=== PATIENT | female | born 1995 | race Caucasian/White ===

== ENCOUNTER 2018-11-10 11:23 | Emergency (ER) | payer SELFPAY ==
[2018-11-10 11:57] VITALS: BP 130/78
--- NOTE | 2018-11-10 12:36 | UC ---
Throat Pain/Nasal Porfirio HPI - HPI Summary HPI Summary: 4 DAYS OF SORE THROAT AND PAIN WITH SWALLOWING. HAD A TONSILLECTOMY ABOUT 5 YEARS AGO. NO FEVER, NAUSEA, EAR PAIN, COUGH. [place] SO DOES NOT HAVE ACCESS TO ANY PRIMARY CARE CURRENTLY. - History of Current Complaint Chief Complaint: UCGeneralIllness Stated Complaint: SORE THROAT Time Seen by Provider: 11/10/18 12:25 Hx Obtained From: Patient Hx Last Menstrual Period: iud Onset/Duration: Gradual Onset, Lasting Days, Still Present Severity: Moderate Pain Intensity: 8 Pain Scale Used: 0-10 Numeric Cough: None Associated Signs & Symptoms: Negative: Hoarseness, Sinus Discomfort, Nasal Discharge, Fever - Allergies/Home Medications Allergies/Adverse Reactions: Allergies Allergy/AdvReac Type Severity Reaction Status Date / Time peanuts Allergy anaph Uncoded 11/10/18 11:58 Home Medications: Home Medications NK [No Home Medications Reported] 11/10/18 [History Confirmed 11/10/18] PMH/Surg Hx/FS Hx/Imm Hx - Additional Past Medical History Additional PMH: SEASONAL ALLERGIES - Surgical History Surgical History: Yes Surgery Procedure, Year, and Place: wisdom teeth - Family History Known Family History: Positive: Non-Contributory - Social History Alcohol Use: Occasionally Substance Use Type: None Smoking Status (MU): Current Some Day Smoker Review of Systems All Other Systems Reviewed And Are Negative: Yes Constitutional: Positive: Negative Skin: Positive: Negative Eyes: Positive: Other - ITCHY, WATERY EYES ENT: Positive: Sore Throat Respiratory: Positive: Negative Cardiovascular: Positive: Negative Gastrointestinal: Positive: Negative Physical Exam Triage Information Reviewed: Yes Appearance: Well-Appearing, No Pain Distress, Well-Nourished Vital Signs: Initial Vital Signs Temp 98 F 11/10/18 11:54 Pulse 77 11/10/18 11:54 Resp 16 11/10/18 11:54 BP 130/78 11/10/18 11:54 Pulse Ox 100 11/10/18 11:54 Laboratory Tests 11/10/18 12:35 Group A Strep Rapid Negative Vital Signs Reviewed: Yes Eyes: Positive: Conjunctiva Clear ENT: Positive: Hearing grossly normal, Pharyngeal erythema, TMs normal Neck: Positive: Supple, Nontender, No Lymphadenopathy Respiratory Exam: Normal Cardiovascular Exam: Normal Abdomen Description: Positive: Soft Musculoskeletal: Positive: No Edema Neurological: Positive: Alert Psychological: Positive: Age Appropriate Behavior Skin: Negative: Rashes Throat Pain/Nasal Course/Dx - Course Course Of Treatment: STREP TEST NEGATIVE. SYMPTOMS ARE LIKELY ALLERGICALLY/VIRALLY MEDIATED. ADVISED HER TO CONTINUE TAKING HER OTC ANTIHISTAMINE DAILY. STAY WELL HYDRATED. NO INDICATION FOR ANTIBIOTICS AT PRESENT. SEEK FOLLOW-UP IF SHE IS NOT IMPROVING EXPECTED. - Differential Dx/Diagnosis Provider Diagnosis: Pharyngitis, acute Discharge - Sign-Out/Discharge Documenting (check all that apply): Patient Departure All imaging exams completed and their final reports reviewed: No Studies - Discharge Plan Condition: Stable Disposition: HOME Patient Education Materials: Pharyngitis (ED) Referrals: No Primary Care Phys,NOPCP [Primary Care Provider] - Additional Instructions: STREP TEST NEGATIVE. YOUR SYMPTOMS ARE LIKELY VIRALLY/ALLERGICALLY MEDIATED. NO INDICATION FOR ANTIBIOTICS AT PRESENT. REST, HYDRATE, OTC MEDS NEEDED. CONTINUE TO TAKE YOUR OTC ANTIHISTAMINE DAILY. STAY WELL HYDRATED. SEEK FOLLOW- UP IF YOUR SYMPTOMS WORSEN OR DO NOT IMPROVE. - Billing Disposition and Condition Condition: STABLE Disposition: Home
== END 2018-11-10 13:10 | disposition home or self-care (01) ==
LOC: UCEAST 11:23
DX: J02.9 Acute pharyngitis, unspecified (principal); H57.89 Other specified disorders of eye and adnexa; F17.200 Nicotine dependence, unspecified, uncomplicated; Z91.010 Allergy to peanuts
CPT/HCPCS: 87651; 99201; G0463